=== PATIENT | female | born 1995 | race Two or more races ===

== ENCOUNTER 2024-07-20 12:01 | Emergency (ER) | payer OTHER ==
[~2024-07-20] VITALS: Ht 160 cm; Wt 72.6 kg
[2024-07-20] MEDS ORDERED: TRAMADOL HCL 50 MG TABLET PO ONE (13:30)
[2024-07-20 14:34] LABS: HEMATOCRIT 41.8 % (36.0-45.00); HEMOGLOBIN 13.6 g/dL (12.0-15.00); MEAN CELL VOLUME 81.9 fL (80.00-100.00); MEAN CORPUSCULAR HEMOGLOBIN 26.7 pg (27.00-32.0); MEAN CORPUSCULAR HGB CONC 32.7 g/dl (32.0-36.0); PLATELET COUNT 332 K/uL (150-450); RED CELL DISTRIBUTION WIDTH 13.4 % (11.5-14.5)
[2024-07-20 14:53] LABS: INR 0.99; PARTIAL THROMBOPLASTIN TIME 29.1 SECONDS (22.0-34.0); PROTHROMBIN TIME 10.8 SECONDS (9.0-11.5)
[2024-07-20 15:00] LABS: ALKALINE PHOSPHATASE 85 U/L (50-136); ALT/SGPT 19 U/L (12-78); ANION GAP 8 (10.0-20.0); AST/SGOT 16 U/L (15-37); BILIRUBIN TOTAL 0.49 mg/dL (0.3-1.2); BLOOD UREA NITROGEN 14 mg/dL (7-18); BUN CREA RATIO 17 (7.0-25.0); CALCIUM 9.3 mg/dL (8.5-10.1); CARBON DIOXIDE 27 mEq/L (21-32); CHLORIDE 108 mmol/L (98-107); CREATININE SERUM 0.83 mg/dL (0.55-1.02); GFR 80.18; GLOBULINA 4.6 G/DL (2.4-3.5); GLUCOSE FASTING 92 mg/dL (65-100); OSMOLALITY SERUM 278 MOSM/KG (275-295); POTASSIUM 3.79 mEq/L (3.5-5.1); SODIUM 139 mmol/L (136-145); TOTAL PROTEIN 8.6 gm/dL (6.4-8.2)
[2024-07-20 15:02] LABS: HCG QUANTITATIVE < 1 mUI/mL (1-3)
[2024-07-20 15:15] LABS: URINE APPEARANCE Clear; URINE BILIRRUBIN Negative (NEGATIVE); URINE BLOOD Negative; URINE COLOR Yellow; URINE GLUCOSE Negative (NEGATIVE); URINE KETONE Negative (NEGATIVE); URINE LEUKOCYTE Negative; URINE NITRATE Negative; URINE PROTEIN Negative (NEGATIVE); URINE UROBILINOGEN 0.2 E.U./dl
[2024-07-20 15:19] LABS: URINE BACTERIA 1521.2 uL (0.0-1933); URINE EPITHELIAL CELLS 25.9 uL (0.0-38.8); URINE RBC 22.9 uL (0.0-20.8); URINE WBC 23.7 uL (0.0-23.2)
[2024-07-20] MEDS ORDERED: KETO10TA2 PO (15:40)
[2024-07-20] MEDS ORDERED: NORFLEX100MG PO (15:40)
== END 2024-07-20 15:45 | disposition home or self-care (01) ==
LOC: ER 12:04
PROVIDERS: General Practice
DX: S20.219A Contusion of unspecified front wall of thorax, initial encounter (principal); S30.0XXA Contusion of lower back and pelvis, initial encounter; V49.9XXA Car occupant (driver) (passenger) injured in unspecified traffic accident, initial encounter; Y93.89 Activity, other specified; Y92.413 State road as the place of occurrence of the external cause; Y99.9 Unspecified external cause status; R42 Dizziness and giddiness